=== PATIENT | female | born 1975 | race Caucasian/White ===

== ENCOUNTER 2018-10-24 17:14 | Emergency (ER) | payer BC ==
[2018-10-24 18:11] VITALS: BP 151/99
--- NOTE | 2018-10-24 23:21 | UC ---
Knee Pain HPI - History of Current Complaint Chief Complaint: UCLowerExtremity Stated Complaint: KNEE COMPLAINT Time Seen by Provider: 10/24/18 19:28 Pain Intensity: 8 Pain Scale Used: 0-10 Numeric - Allergies/Home Medications Allergies/Adverse Reactions: Allergies Allergy/AdvReac Type Severity Reaction Status Date / Time No Known Allergies Allergy Verified 10/24/18 18:11 Home Medications: Home Medications Enalapril Maleate [Vasotec] 1 tab PO DAILY 10/24/18 [History Confirmed 10/24/18] PMH/Surg Hx/FS Hx/Imm Hx Cardiovascular History: Hypertension - Surgical History Surgical History: None - Family History Known Family History: Positive: Non-Contributory - Social History Alcohol Use: None Substance Use Type: None Smoking Status (MU): Never Smoked Tobacco Review of Systems All Other Systems Reviewed And Are Negative: Yes Constitutional: Positive: Negative Skin: Positive: Negative Respiratory: Positive: Negative Cardiovascular: Positive: Negative Gastrointestinal: Positive: Negative Musculoskeletal: Positive: Arthralgia, Decreased ROM, Edema. Negative: Calf Tenderness Physical Exam Triage Information Reviewed: Yes Appearance: Well-Appearing, Well-Nourished, Pain Distress - MODERATE Vital Signs: Initial Vital Signs Temp 98.6 F 10/24/18 18:09 Pulse 68 10/24/18 18:09 Resp 18 10/24/18 18:09 BP 151/99 10/24/18 18:09 Pulse Ox 99 10/24/18 18:09 Vital Signs Reviewed: Yes Eyes: Positive: Conjunctiva Clear ENT: Positive: Hearing grossly normal Neck: Positive: Supple Respiratory: Positive: No respiratory distress, No accessory muscle use Cardiovascular: Positive: Pulses Normal Abdomen Description: Positive: Soft Musculoskeletal: Positive: ROM Limited @ - LEFT KNEE, Edema @ - SIGNIFICANT LEFT KNEE EDEMA, Other: - MILDLY TENDER DIFFUSELY BUT WORSE OVER ANTERIOR KNEE/ PATELLA. UNABLE TO PERFORM FULL KNEE EXAM DUE TO PT DISCOMFORT Neurological: Positive: Alert Psychological: Positive: Age Appropriate Behavior Skin: Negative: Rashes Diagnostics - Radiology LEFT KNEE XRAY Radiology Interpretation Completed By: ED Physician Summary of Radiographic Findings: NONDISPLACED PATELLAR FRACTURE Knee Pain Course/Dx - Course Course Of Treatment: XRAY CONCERNING FOR NONDISPLACED FRACTURE OF THE PATELLA. PATIENT WILL CONTINUE TO USE HER KNEE SLEEVE. KNEE IMMOBILIZER PLACED TODAY. SHE HAS A WALKER TO HELP WITH MOBILITY. RECOMMENDED SHE AVOID WEIGHTBEARING MUCH POSSIBLE. SHE WILL CALL ORTHOPEDICS FOR FOLLOW-UP APPOINTMENT FIRST THING Saturday. - Differential Dx/Diagnosis Provider Diagnosis: Nondisplaced fracture of patella Discharge - Sign-Out/Discharge Documenting (check all that apply): Patient Departure All imaging exams completed and their final reports reviewed: No - Discharge Plan Condition: Stable Disposition: HOME Patient Education Materials: Patellar Fracture (ED) Forms: *Work Release Referrals: Nicki Martines MD [Primary Care Provider] - If Needed Janiya Rangel MD [Medical Doctor] - 2 Days Additional Instructions: PRELIMINARY READING BY ME IS CONCERNING FOR A FRACTURE OF YOUR KNEECAP. CONTINUE TO USE YOUR KNEE SLEEVE FOR COMPRESSION IN ADDITION TO THE KNEE IMMOBILIZER WE HAVE PROVIDED FOR YOU TODAY. CONTINUE USING YOUR WALKER TO HELP WITH MOBILITY. TRY NOT TO WEIGHT-BEAR MUCH POSSIBLE. CALL ORTHOPEDICS FIRST THING Saturday FOR FOLLOW-UP APPOINTMENT. GO TO THE ER WITHOUT FAIL IF YOU DEVELOP INTOLERABLE PAIN, INCREASED SWELLING EXTENDING TO THE LOWER LEG, FEVER OR ANY OTHER CONCERNING SYMPTOMS. - Billing Disposition and Condition Condition: STABLE Disposition: Home
--- NOTE | 2018-10-25 15:22 | UC ---
- Progress Note Progress Note: OFFICIAL RADIOLOGY REPORT REVIEWED AND CONFIRMS Nondisplaced fracture lateral pole of the patella with suprapatellar effusion. NO CHANGE IN MGMT. FOLLOW-UP WITH ORTHO ADVISED. PT CALLED AND NOTIFIED BY ME. Course/Dx - Diagnoses Provider Diagnoses: Nondisplaced fracture of patella Discharge - Sign-Out/Discharge Documenting (check all that apply): Post-Discharge Follow Up All imaging exams completed and their final reports reviewed: Yes - Discharge Plan Condition: Stable Disposition: HOME Patient Education Materials: Patellar Fracture (ED) Forms: *Work Release Referrals: Nicki Martines MD [Primary Care Provider] - If Needed Janiya Rangel MD [Medical Doctor] - 2 Days Additional Instructions: PRELIMINARY READING BY ME IS CONCERNING FOR A FRACTURE OF YOUR KNEECAP. CONTINUE TO USE YOUR KNEE SLEEVE FOR COMPRESSION IN ADDITION TO THE KNEE IMMOBILIZER WE HAVE PROVIDED FOR YOU TODAY. CONTINUE USING YOUR WALKER TO HELP WITH MOBILITY. TRY NOT TO WEIGHT-BEAR MUCH POSSIBLE. CALL ORTHOPEDICS FIRST THING SATURDAY MORNING FOR FOLLOW-UP APPOINTMENT. GO TO THE ER WITHOUT FAIL IF YOU DEVELOP INTOLERABLE PAIN, INCREASED SWELLING EXTENDING TO THE LOWER LEG, FEVER OR ANY OTHER CONCERNING SYMPTOMS. - Billing Disposition and Condition Condition: STABLE Disposition: Home
== END 2018-10-24 21:10 | disposition home or self-care (01) ==
LOC: UCEAST 17:14
DX: S82.002A Unspecified fracture of left patella, initial encounter for closed fracture (principal); I10 Essential (primary) hypertension; Z79.899 Other long term (current) drug therapy; X58.XXXA Exposure to other specified factors, initial encounter; Y92.9 Unspecified place or not applicable
CPT/HCPCS: 99212; G0463

== ENCOUNTER 2020-12-10 08:37 | Inpatient (IN) ==
[2020-12-10 09:35] LABS: ABS Basophils 0.1 10^3/ul (0-0.2); ABS Eosinophils 0.3 10^3/ul (0-0.6); ABS Monocytes 2.2 10^3/ul (0-0.8); ABS Neutrophils 16.8 10^3/ul (1.5-7.7); Eosinophil % 1.3 %; Hematocrit 19 % (35-47); Hemoglobin 5.9 g/dL (12.0-16.0); Lymphocyte % 4.8 %; Mean Corpuscular HGB Conc 31 g/dL (31-36); Mean Corpuscular Hemoglobin 25 pg (27-31); Mean Corpuscular Volume 79 fL (80-97); Mean Platelet Volume 7.4 fL (7.4-10.4); Platelet Count 709 10^3/uL (150-450); Red Blood Count 2.41 10^6 /uL (3.70-4.87); Red Cell Distribution Width 17 % (10-15); White Blood Count 20.3 10^3/uL (3.5-10.8)
[2020-12-10 09:43] LABS: Albumin 2.3 g/dL (3.2-5.2); Albumin/Globulin Ratio 0.6 (1-3); BUN/Creatinine Ratio 19.6 (8-20); C Reactive Protein 267.18 mg/L (<8.01); Calcium 8.1 mg/dL (8.6-10.3); EGFR African American 66.8 (>60); EGFR Non-African American 55.2 (>60); Globulin 3.9 g/dL (2-4); Potassium 4.6 mmol/L (3.5-5.0); Total Bilirubin 0.6 mg/dL (0.2-1.0); Total Protein 6.2 g/dL (6.4-8.9)
[2020-12-10] MEDS ORDERED: Iodixanol (CONTRAST) 320 MG/ML 100 ML SDV IV ONE (09:54)
[2020-12-10 10:25] LABS: Urine Appearance Cloudy; Urine Bilirubin Negative (Negative); Urine Blood Negative (Negative); Urine Color Yellow; Urine Glucose Negative (Negative); Urine Ketones Negative (Negative); Urine Nitrite Negative (Negative); Urine Protein 1+(30 mg/dL) (Negative); Urine Specific Gravity 1.014 (1.010-1.030); Urine Urobilinogen Positive (Negative)
[2020-12-10 10:39] LABS: Urine Bacteria Absent (Absent); Urine Red Blood Cell 2+(6-10/hpf) (Absent); Urine Squamous Epithelial Cell Present (Absent); Urine White Blood Cell Trace(0-5/hpf) (Absent)
[2020-12-10] MEDS ORDERED: Ondansetron 4 mg VIAL 2 MG/ML 2 ml VIAL IV PRN (13:08)
[2020-12-10 17:45] LABS: Body Fluid Source Peritonial Fluid
[2020-12-10 18:19] LABS: Hematocrit 24 % (35-47); Hemoglobin 7.5 g/dL (12.0-16.0)
[2020-12-10 19:07] LABS: Body Fluid Mono 27 %
[2020-12-11 08:17] LABS: ABS Basophils 0.1 10^3/ul (0-0.2); ABS Eosinophils 0.3 10^3/ul (0-0.6); ABS Monocytes 1.9 10^3/ul (0-0.8); ABS Neutrophils 14.6 10^3/ul (1.5-7.7); Eosinophil % 1.4 %; Hematocrit 26 % (35-47); Hemoglobin 7.9 g/dL (12.0-16.0); Lymphocyte % 5.6 %; Mean Corpuscular HGB Conc 31 g/dL (31-36); Mean Corpuscular Hemoglobin 25 pg (27-31); Mean Corpuscular Volume 82 fL (80-97); Mean Platelet Volume 7.3 fL (7.4-10.4); Platelet Count 591 10^3/uL (150-450); Red Blood Count 3.15 10^6 /uL (3.70-4.87); Red Cell Distribution Width 17 % (10-15); White Blood Count 17.9 10^3/uL (3.5-10.8)
[2020-12-11 08:30] LABS: Albumin 1.9 g/dL (3.2-5.2); Albumin/Globulin Ratio 0.6 (1-3); BUN/Creatinine Ratio 20.7 (8-20); Calcium 7.7 mg/dL (8.6-10.3); EGFR African American 84.8 (>60); EGFR Non-African American 70.1 (>60); Globulin 3.3 g/dL (2-4); Indirect Bilirubin 0.5 mg/dL (0.3-1.0); Potassium 4.6 mmol/L (3.5-5.0); Total Bilirubin 0.8 mg/dL (0.2-1.0); Total Protein 5.2 g/dL (6.4-8.9)
[2020-12-11 17:19] LABS: Total Iron Binding Capacity 115 mcg/dL (250-450); Transferrin 82 mg/dL (203-362)
[2020-12-11 17:29] LABS: % Iron Saturation 17 % (15-55); Iron < 20 ug/dL (50-212); Unsaturated Iron Binding < 100 ug/dL
[2020-12-11 17:32] LABS: Carcinoembryonic Antigen 1.6 ng/mL (0.1-5.0)
[2020-12-11 18:32] LABS: Ferritin 2020.9 ng/mL (11-307)
[2020-12-11] MEDS ORDERED: Enoxaparin 40 MG/0.4 ML SYR SUBCUT SCH (20:00)
[2020-12-12 05:01] LABS: Hematocrit 25 % (35-47); Mean Corpuscular HGB Conc 31 g/dL (31-36); Mean Corpuscular Hemoglobin 25 pg (27-31); Mean Corpuscular Volume 80 fL (80-97); Mean Platelet Volume 7.4 fL (7.4-10.4); Platelet Count 617 10^3/uL (150-450); Red Blood Count 3.17 10^6 /uL (3.70-4.87); Red Cell Distribution Width 18 % (10-15); White Blood Count 17.9 10^3/uL (3.5-10.8)
[2020-12-12 05:10] LABS: ABS Basophils 0.1 10^3/ul (0-0.2); ABS Eosinophils 0.3 10^3/ul (0-0.6); ABS Lymphocytes 1.1 10^3/ul (1.0-4.8); ABS Monocytes 1.8 10^3/ul (0-0.8); ABS Neutrophils 14.6 10^3/ul (1.5-7.7); Eosinophil % 1.7 %
[2020-12-12 07:36] VITALS: BP 97/50
[2020-12-13 13:41] LABS: Albumin, BF 1.7 g/dL; Fluid Type, Albumin PERITONEAL
[2020-12-13 13:43] LABS: Lactate Dehydrogenase, BF 314 U/L
[2020-12-13 13:57] LABS: Fluid Type, Protein, Total PERITONEAL
[2020-12-13 14:11] LABS: Fluid Type, Glucose PERITONEAL; Glucose, BF 104 mg/dL
== END 2020-12-12 11:15 | disposition home or self-care (01) | DRG 264 ==
LOC: ED 08:37 → SSU 14:14
PROVIDERS: ADMIT Internal Medicine; ATTEND Internal Medicine

== ENCOUNTER 2021-01-05 10:41 | Inpatient (IN) ==
[2021-01-05] MEDS ORDERED: NS 0.9% 1000 ml BAG 1,000 ML IV ONE (11:12)
[2021-01-05 12:03] LABS: ABS Basophils 0.1 10^3/ul (0-0.2); ABS Lymphocytes 1.4 10^3/ul (1.0-4.8); ABS Neutrophils 18.3 10^3/ul (1.5-7.7); Eosinophil % 0.1 %; Hematocrit 19 % (35-47); Hemoglobin 5.8 g/dL (12.0-16.0); Lymphocyte % 6.4 %; Mean Corpuscular HGB Conc 30 g/dL (31-36); Mean Corpuscular Hemoglobin 24 pg (27-31); Mean Corpuscular Volume 79 fL (80-97); Mean Platelet Volume 8.3 fL (7.4-10.4); Platelet Count 410 10^3/uL (150-450); Red Blood Count 2.43 10^6 /uL (3.70-4.87); Red Cell Distribution Width 19 % (10-15); White Blood Count 21.9 10^3/uL (3.5-10.8)
[2021-01-05 12:04] LABS: Activated Partial Thrombo Time 31.1 seconds (26.0-38.0); INR 1.45 (0.82-1.09)
[2021-01-05 12:11] LABS: Albumin 2.1 g/dL (3.2-5.2); Albumin/Globulin Ratio 0.5 (1-3); BUN/Creatinine Ratio 24.3 (8-20); C Reactive Protein 262.86 mg/L (<8.01); Calcium 8.1 mg/dL (8.6-10.3); EGFR African American 69.5 (>60); EGFR Non-African American 57.4 (>60); Globulin 3.9 g/dL (2-4); Potassium 4.5 mmol/L (3.5-5.0); Total Bilirubin 0.9 mg/dL (0.2-1.0)
[2021-01-05 13:39] LABS: Erythrocyte Sed Rate > 120 mm/Hr (0-19)
[2021-01-05] MEDS: Pantoprazole VIAL 40 MG VIAL IV SCH (17:39)
[2021-01-05] MEDS ORDERED: Iodixanol (CONTRAST) 320 MG/ML 100 ML SDV IV ONE (21:22)
[2021-01-05 22:55] LABS: Hematocrit 25 % (35-47); Hemoglobin 7.9 g/dL (12.0-16.0)
[2021-01-06 06:17] LABS: ABS Eosinophils 0.1 10^3/ul (0-0.6); ABS Lymphocytes 1.1 10^3/ul (1.0-4.8); ABS Monocytes 1.4 10^3/ul (0-0.8); ABS Neutrophils 19.2 10^3/ul (1.5-7.7); Eosinophil % 0.6 %; Hematocrit 25 % (35-47); Hemoglobin 7.9 g/dL (12.0-16.0); Mean Corpuscular HGB Conc 31 g/dL (31-36); Mean Corpuscular Hemoglobin 24 pg (27-31); Mean Corpuscular Volume 78 fL (80-97); Mean Platelet Volume 8.4 fL (7.4-10.4); Platelet Count 388 10^3/uL (150-450); Red Blood Count 3.25 10^6 /uL (3.70-4.87); Red Cell Distribution Width 20 % (10-15)
[2021-01-06 06:34] LABS: Albumin 1.9 g/dL (3.2-5.2); Albumin/Globulin Ratio 0.5 (1-3); BUN/Creatinine Ratio 22.8 (8-20); Calcium 7.9 mg/dL (8.6-10.3); EGFR African American 61.8 (>60); EGFR Non-African American 51.1 (>60); Globulin 3.9 g/dL (2-4); Potassium 4.5 mmol/L (3.5-5.0); Total Bilirubin 1.1 mg/dL (0.2-1.0); Total Protein 5.8 g/dL (6.4-8.9)
[2021-01-06] MEDS: Pantoprazole VIAL 40 MG VIAL IV SCH (09:18)
[2021-01-06] MEDS ORDERED: TPN 24 HR with Sodium Chloride CONC. 4 MEQ/ML 100 MEQ, Potassium Chloride TPN 50 MEQ, P... CENT\\PICC SCH (17:00)
[2021-01-06] MEDS: TPN CENTRAL STANDARD BASE A CENTR SCH (17:33)
[2021-01-07 05:28] LABS: ABS Eosinophils 0.3 10^3/ul (0-0.6); ABS Lymphocytes 1.1 10^3/ul (1.0-4.8); ABS Monocytes 1.5 10^3/ul (0-0.8); ABS Neutrophils 16.8 10^3/ul (1.5-7.7); Eosinophil % 1.5 %; Hematocrit 22 % (35-47); Hemoglobin 6.8 g/dL (12.0-16.0); Lymphocyte % 5.6 %; Mean Corpuscular HGB Conc 31 g/dL (31-36); Mean Corpuscular Hemoglobin 24 pg (27-31); Mean Corpuscular Volume 80 fL (80-97); Mean Platelet Volume 8.2 fL (7.4-10.4); Platelet Count 284 10^3/uL (150-450); Red Blood Count 2.79 10^6 /uL (3.70-4.87); Red Cell Distribution Width 20 % (10-15); White Blood Count 19.8 10^3/uL (3.5-10.8)
[2021-01-07 05:52] LABS: Prealbumin < 3 mg/dL (18-38)
[2021-01-07 05:54] LABS: ALT 7 U/L (7-52); AST 7 U/L (13-39); Albumin 1.7 g/dL (3.2-5.2); Albumin/Globulin Ratio 0.5 (1-3); Alkaline Phosphatase 74 U/L (34-104); Anion Gap 5 mmol/L (2-11); BUN/Creatinine Ratio 30.8 (8-20); Blood Urea Nitrogen 32 mg/dL (6-24); CO2 Carbon Dioxide 24 mmol/L (22-32); Calcium 8.1 mg/dL (8.6-10.3); Chloride 106 mmol/L (101-111); Cholesterol 66 mg/dL; EGFR African American 68.7 (>60); EGFR Non-African American 56.8 (>60); Globulin 3.3 g/dL (2-4); Glucose 155 mg/dL (70-100); Potassium 4.6 mmol/L (3.5-5.0); Sodium 135 mmol/L (135-145); Triglycerides 80 mg/dL
[2021-01-07] MEDS: Pantoprazole VIAL 40 MG VIAL IV SCH (07:40)
[2021-01-07] MEDS: TPN CENTRAL STANDARD BASE A CENTR SCH (17:02)
[2021-01-07] MEDS: Morphine 2 MG/ML SYRINGE IV PRN ×2 (18:14→21:37)
[2021-01-08 05:38] LABS: Hematocrit 25 % (35-47); Mean Corpuscular HGB Conc 32 g/dL (31-36); Mean Corpuscular Hemoglobin 26 pg (27-31); Mean Corpuscular Volume 82 fL (80-97); Mean Platelet Volume 8.6 fL (7.4-10.4); Platelet Count 216 10^3/uL (150-450); Red Cell Distribution Width 20 % (10-15); White Blood Count 21.5 10^3/uL (3.5-10.8)
[2021-01-08 05:40] LABS: ABS Basophils 0.1 10^3/ul (0-0.2); ABS Eosinophils 0.6 10^3/ul (0-0.6); ABS Lymphocytes 1.4 10^3/ul (1.0-4.8); ABS Monocytes 1.9 10^3/ul (0-0.8); ABS Neutrophils 17.5 10^3/ul (1.5-7.7); Eosinophil % 2.7 %; Lymphocyte % 6.5 %
[2021-01-08 05:52] LABS: ALT 6 U/L (7-52); AST 11 U/L (13-39); Albumin 1.7 g/dL (3.2-5.2); Albumin/Globulin Ratio 0.5 (1-3); Alkaline Phosphatase 86 U/L (34-104); Anion Gap 4 mmol/L (2-11); Blood Urea Nitrogen 41 mg/dL (6-24); CO2 Carbon Dioxide 23 mmol/L (22-32); Calcium 8.6 mg/dL (8.6-10.3); Chloride 108 mmol/L (101-111); Cholesterol 55 mg/dL; EGFR African American 65.8 (>60); EGFR Non-African American 54.4 (>60); Globulin 3.5 g/dL (2-4); Glucose 143 mg/dL (70-100); Phosphorus 3.1 mg/dL (2.5-5.0); Sodium 135 mmol/L (135-145); Total Protein 5.2 g/dL (6.4-8.9); Triglycerides 69 mg/dL
[2021-01-08 06:12] LABS: Prealbumin < 3 mg/dL (18-38)
[2021-01-08] MEDS: Pantoprazole VIAL 40 MG VIAL IV SCH (08:35)
[2021-01-08] MEDS: Morphine 2 MG/ML SYRINGE IV PRN ×2 (16:53→20:39)
[2021-01-08] MEDS ORDERED: TPN CENTRAL STANDARD BASE A CENTR SCH (17:00)
[2021-01-09 05:37] LABS: Hematocrit 26 % (35-47); Hemoglobin 7.9 g/dL (12.0-16.0); Mean Corpuscular HGB Conc 30 g/dL (31-36); Mean Corpuscular Hemoglobin 25 pg (27-31); Mean Corpuscular Volume 83 fL (80-97); Mean Platelet Volume 9.2 fL (7.4-10.4); Platelet Count 201 10^3/uL (150-450); Red Blood Count 3.13 10^6 /uL (3.70-4.87); Red Cell Distribution Width 20 % (10-15)
[2021-01-09 05:41] LABS: ABS Basophils 0.1 10^3/ul (0-0.2); ABS Eosinophils 0.5 10^3/ul (0-0.6); ABS Lymphocytes 1.6 10^3/ul (1.0-4.8); ABS Monocytes 2.4 10^3/ul (0-0.8); ABS Neutrophils 18.5 10^3/ul (1.5-7.7); Eosinophil % 2.2 %; Lymphocyte % 7.1 %
[2021-01-09 05:48] LABS: ALT 8 U/L (7-52); AST 13 U/L (13-39); Albumin 1.7 g/dL (3.2-5.2); Albumin/Globulin Ratio 0.5 (1-3); Alkaline Phosphatase 92 U/L (34-104); BUN/Creatinine Ratio 36.9 (8-20); Blood Urea Nitrogen 55 mg/dL (6-24); CO2 Carbon Dioxide 21 mmol/L (22-32); Calcium 9.2 mg/dL (8.6-10.3); Chloride 107 mmol/L (101-111); Cholesterol 51 mg/dL; EGFR African American 45.4 (>60); EGFR Non-African American 37.5 (>60); Globulin 3.6 g/dL (2-4); Glucose 111 mg/dL (70-100); Magnesium 2.1 mg/dL (1.9-2.7); Phosphorus 3.3 mg/dL (2.5-5.0); Sodium 133 mmol/L (135-145); Total Protein 5.3 g/dL (6.4-8.9); Triglycerides 68 mg/dL
[2021-01-09 05:56] LABS: Anion Gap 5 mmol/L (2-11); Potassium 6.3 mmol/L (3.5-5.0)
[2021-01-09 06:14] LABS: Prealbumin < 3 mg/dL (18-38)
[2021-01-09] MEDS ORDERED: NS 0.9% 1,000 ML IV ONE (06:30)
[2021-01-09] MEDS: Pantoprazole VIAL 40 MG VIAL IV SCH (07:34)
[2021-01-09 08:24] LABS: BUN/Creatinine Ratio 37.2 (8-20); Calcium 8.8 mg/dL (8.6-10.3); EGFR African American 46.8 (>60); EGFR Non-African American 38.7 (>60)
[2021-01-09 08:27] LABS: Potassium 6.1 mmol/L (3.5-5.0)
[2021-01-09] MEDS ORDERED: Dextrose 50% Syringe 50 ml 25 GM/50 ML SYRINGE IV PUSH ONE ×2 (08:28→20:18)
[2021-01-09] MEDS ORDERED: NS 0.9% 1000 ml BAG 1,000 ML IV SCH ×3 (08:30→15:18)
[2021-01-09 08:50] LABS: Uric Acid 3.7 mg/dL (2.3-6.6)
[2021-01-09 14:16] LABS: BUN/Creatinine Ratio 37.7 (8-20); Calcium 8.8 mg/dL (8.6-10.3); EGFR African American 43.7 (>60); EGFR Non-African American 36.1 (>60); Magnesium 1.9 mg/dL (1.9-2.7); Phosphorus 3.7 mg/dL (2.5-5.0)
[2021-01-09 14:21] LABS: Potassium 6.3 mmol/L (3.5-5.0)
[2021-01-09] MEDS ORDERED: Sodium Polystyrene ORAL.SUSP 15 GM/60 ML BTL PO ONE ×2 (15:30→20:18)
[2021-01-09] MEDS: Morphine 2 MG/ML SYRINGE IV PRN (15:34)
[2021-01-09 20:06] LABS: BUN/Creatinine Ratio 35.9 (8-20); Calcium 8.9 mg/dL (8.6-10.3); EGFR Non-African American 32.2 (>60)
[2021-01-09 20:08] LABS: Potassium 6.4 mmol/L (3.5-5.0)
[2021-01-09] MEDS ORDERED: Furosemide 20 mg/2 ml IV VIAL IV ONE (20:18)
[2021-01-09 22:35] LABS: BUN/Creatinine Ratio 34.8 (8-20); EGFR African American 36.3 (>60)
[2021-01-09 22:36] LABS: Potassium 6.1 mmol/L (3.5-5.0)
[2021-01-10] MEDS: Morphine 2 MG/ML SYRINGE IV PRN ×2 (01:47→08:19)
[2021-01-10] MEDS ORDERED: Sodium Polystyrene ORAL.SUSP 15 GM/60 ML BTL PO ONE (03:00)
[2021-01-10 06:20] LABS: Hematocrit 26 % (35-47); Hemoglobin 8.1 g/dL (12.0-16.0); Mean Corpuscular HGB Conc 31 g/dL (31-36); Mean Corpuscular Hemoglobin 26 pg (27-31); Mean Corpuscular Volume 83 fL (80-97); Mean Platelet Volume 9.2 fL (7.4-10.4); Platelet Count 236 10^3/uL (150-450); Red Blood Count 3.15 10^6 /uL (3.70-4.87); Red Cell Distribution Width 20 % (10-15); White Blood Count 22.6 10^3/uL (3.5-10.8)
[2021-01-10 06:36] LABS: ABS Basophils 0.1 10^3/ul (0-0.2); ABS Monocytes 2.4 10^3/ul (0-0.8); BUN/Creatinine Ratio 32.8 (8-20); EGFR African American 31.6 (>60); EGFR Non-African American 26.1 (>60); Eosinophil % 0.2 %; Lymphocyte % 4.4 %; Nucleated Red Blood Cells % 0.1
[2021-01-10 06:38] LABS: Potassium 5.8 mmol/L (3.5-5.0)
[2021-01-10] MEDS ORDERED: Midazolam 2 mg/2 ml VIAL 1 mg/ml 2 ml VIAL (2 mg) ONE (10:20)
[2021-01-10] MEDS ORDERED: fentaNYL 100 mcg/2 ml 50 MCG/ML VIAL ONE (10:20)
[2021-01-10 10:32] LABS: Activated Partial Thrombo Time 34.6 seconds (26.0-38.0); INR 1.61 (0.82-1.09)
[2021-01-10] MEDS: Pantoprazole VIAL 40 MG VIAL IV SCH (12:41)
[2021-01-10] MEDS: NS 0.9% 1,000 ML IV ONE ×2 (15:47→19:58)
[2021-01-10 17:37] LABS: BUN/Creatinine Ratio 36.9 (8-20); Calcium 8.3 mg/dL (8.6-10.3); EGFR African American 34.9 (>60); EGFR Non-African American 28.9 (>60)
[2021-01-10 17:38] LABS: Potassium 5.6 mmol/L (3.5-5.0)
[2021-01-11] MEDS: NS 0.9% 1,000 ML IV SCH ×2 (05:31→17:07)
[2021-01-11 06:04] LABS: ABS Basophils 0.1 10^3/ul (0-0.2); ABS Eosinophils 0.2 10^3/ul (0-0.6); ABS Lymphocytes 0.9 10^3/ul (1.0-4.8); ABS Monocytes 1.4 10^3/ul (0-0.8); ABS Neutrophils 14.8 10^3/ul (1.5-7.7); Eosinophil % 1.2 %; Hematocrit 23 % (35-47); Lymphocyte % 5.3 %; Mean Corpuscular HGB Conc 31 g/dL (31-36); Mean Corpuscular Hemoglobin 25 pg (27-31); Mean Corpuscular Volume 83 fL (80-97); Mean Platelet Volume 9.1 fL (7.4-10.4); Platelet Count 232 10^3/uL (150-450); Red Blood Count 2.77 10^6 /uL (3.70-4.87); Red Cell Distribution Width 20 % (10-15); White Blood Count 17.4 10^3/uL (3.5-10.8)
[2021-01-11 06:27] LABS: Albumin 1.5 g/dL (3.2-5.2); Calcium 7.4 mg/dL (8.6-10.3); Potassium 4.8 mmol/L (3.5-5.0); Total Bilirubin 1.5 mg/dL (0.2-1.0)
[2021-01-11 06:33] LABS: Albumin/Globulin Ratio 0.5 (1-3); BUN/Creatinine Ratio 36.9 (8-20); EGFR African American 37.5 (>60); Globulin 3.2 g/dL (2-4); Total Protein 4.7 g/dL (6.4-8.9)
[2021-01-11] MEDS: Pantoprazole VIAL 40 MG VIAL IV SCH (09:24)
[2021-01-11] MEDS: Morphine 2 MG/ML SYRINGE IV PRN ×2 (11:24→20:58)
[2021-01-11 12:03] LABS: ABS Basophils 0.1 10^3/ul (0-0.2); ABS Eosinophils 0.2 10^3/ul (0-0.6); ABS Lymphocytes 0.7 10^3/ul (1.0-4.8); ABS Monocytes 1.4 10^3/ul (0-0.8); ABS Neutrophils 15.4 10^3/ul (1.5-7.7); Hematocrit 24 % (35-47); Hemoglobin 7.3 g/dL (12.0-16.0); Lymphocyte % 4.2 %; Mean Corpuscular HGB Conc 31 g/dL (31-36); Mean Corpuscular Hemoglobin 25 pg (27-31); Mean Corpuscular Volume 82 fL (80-97); Mean Platelet Volume 8.9 fL (7.4-10.4); Platelet Count 232 10^3/uL (150-450); Red Blood Count 2.89 10^6 /uL (3.70-4.87); Red Cell Distribution Width 20 % (10-15); White Blood Count 17.8 10^3/uL (3.5-10.8)
[2021-01-12] MEDS: Pantoprazole VIAL 40 MG VIAL IV SCH (08:03)
[2021-01-12 10:25] LABS: ABS Basophils 0.1 10^3/ul (0-0.2); ABS Eosinophils 0.2 10^3/ul (0-0.6); ABS Lymphocytes 0.8 10^3/ul (1.0-4.8); ABS Monocytes 1.3 10^3/ul (0-0.8); Hematocrit 22 % (35-47); Hemoglobin 6.7 g/dL (12.0-16.0); Lymphocyte % 4.3 %; Mean Corpuscular HGB Conc 30 g/dL (31-36); Mean Corpuscular Hemoglobin 25 pg (27-31); Mean Corpuscular Volume 83 fL (80-97); Mean Platelet Volume 8.8 fL (7.4-10.4); Nucleated Red Blood Cells % 0.1; Platelet Count 216 10^3/uL (150-450); Red Blood Count 2.66 10^6 /uL (3.70-4.87); Red Cell Distribution Width 20 % (10-15); White Blood Count 17.3 10^3/uL (3.5-10.8)
[2021-01-12 10:41] LABS: Albumin 1.5 g/dL (3.2-5.2); Albumin/Globulin Ratio 0.5 (1-3); BUN/Creatinine Ratio 38.9 (8-20); Calcium 7.7 mg/dL (8.6-10.3); EGFR African American 36.5 (>60); EGFR Non-African American 30.2 (>60); Globulin 3.1 g/dL (2-4); Potassium 4.3 mmol/L (3.5-5.0); Total Bilirubin 1.3 mg/dL (0.2-1.0); Total Protein 4.6 g/dL (6.4-8.9)
[2021-01-12] MEDS ORDERED: methylPREDNISolone 125 mg 2 ML VIAL IV PRN (12:24)
[2021-01-12] MEDS ORDERED: diPHENhydraMINE IV 50 MG/ML 1 ml VIAL (BENADRYL) SLOW PUSH PRN (12:27)
[2021-01-12] MEDS ORDERED: Famotidine IV 10 MG/ML 2 ml VIAL (20 mg) IV SLOW PU PRN (12:27)
[2021-01-12] MEDS ORDERED: Dexamethasone IV 4 MG/ML 5 ML VIAL (20 MG) IVPB ONE (12:30)
[2021-01-12] MEDS ORDERED: diPHENhydraMINE IV 50 MG/ML 1 ml VIAL (BENADRYL) SLOW PUSH ONE (12:30)
[2021-01-12] MEDS ORDERED: Famotidine IV 10 MG/ML 2 ml VIAL (20 mg) IV SLOW PU ONE (12:30)
[2021-01-12] MEDS ORDERED: APREPITANT 130 MG in Premix IV 0 ML IVPB ONE (12:45)
[2021-01-12] MEDS ORDERED: Palonosetron 0.25 MG in Premix IV 0 ML IVPB ONE (12:45)
[2021-01-12] MEDS ORDERED: PACLITAXEL IVPB ONE (13:30)
[2021-01-12] MEDS ORDERED: NS 0.9% IVPB ONE ×2 (13:30→16:30)
[2021-01-12] MEDS ORDERED: CARBOPLATIN IVPB ONE (16:30)
[2021-01-12] MEDS ORDERED: TPN 24 HR with Dextrose 50% Water 500 ML, Amino Acid Infusion 10% 850 ML, Sterile Water... CENTR SCH (17:00)
[2021-01-12] MEDS: Morphine 2 MG/ML SYRINGE IV PRN (17:00)
[2021-01-13] MEDS: Morphine 2 MG/ML SYRINGE IV PRN ×4 (04:33→22:13)
[2021-01-13 05:24] LABS: Albumin 1.5 g/dL (3.2-5.2); Albumin/Globulin Ratio 0.5 (1-3); BUN/Creatinine Ratio 45.3 (8-20); Calcium 7.3 mg/dL (8.6-10.3); EGFR African American 42.1 (>60); EGFR Non-African American 34.8 (>60); Globulin 3.1 g/dL (2-4); Phosphorus 6.9 mg/dL (2.5-5.0); Potassium 4.7 mmol/L (3.5-5.0); Total Protein 4.6 g/dL (6.4-8.9)
[2021-01-13] MEDS ORDERED: Dextrose 50% Syringe 50 ml 25 GM/50 ML SYRINGE IV PUSH PRN (05:55)
[2021-01-13 06:13] LABS: Hematocrit 24 % (35-47); Hemoglobin 7.1 g/dL (12.0-16.0); Mean Corpuscular HGB Conc 29 g/dL (31-36); Mean Corpuscular Hemoglobin 25 pg (27-31); Mean Corpuscular Volume 86 fL (80-97); Platelet Count 244 10^3/uL (150-450); Red Blood Count 2.84 10^6 /uL (3.70-4.87); Red Cell Distribution Width 20 % (10-15); White Blood Count 21.1 10^3/uL (3.5-10.8)
[2021-01-13] MEDS: Pantoprazole VIAL 40 MG VIAL IV SCH (07:30)
[2021-01-13 08:53] LABS: ABS Basophils 0.1 10^3/ul (0-0.2); ABS Lymphocytes 0.6 10^3/ul (1.0-4.8); ABS Monocytes 0.5 10^3/ul (0-0.8); ABS Neutrophils 19.9 10^3/ul (1.5-7.7); Lymphocyte % 2.7 %
[2021-01-13 08:54] LABS: Polychromasia 1+
[2021-01-13] MEDS ORDERED: TPN CENTRAL STANDARD BASE A CENTR SCH (17:00)
[2021-01-14] MEDS: Morphine 2 MG/ML SYRINGE IV PRN ×5 (05:21→23:17)
[2021-01-14] MEDS: Pantoprazole VIAL 40 MG VIAL IV SCH (08:11)
[2021-01-14 11:18] LABS: Calcium 7.3 mg/dL (8.6-10.3); Magnesium 2.3 mg/dL (1.9-2.7)
[2021-01-14 11:23] LABS: BUN/Creatinine Ratio 65.1 (8-20); EGFR African American 53.6 (>60); EGFR Non-African American 44.3 (>60); Phosphorus 6.6 mg/dL (2.5-5.0); Uric Acid 7.3 mg/dL (2.3-6.6)
[2021-01-14 11:28] LABS: Potassium 5.4 mmol/L (3.5-5.0)
[2021-01-14] MEDS ORDERED: TPN 24 HR with Dextrose 50% Water 500 ML, Amino Acid Infusion 10% 850 ML, Sterile Water... CENTR SCH (17:00)
[2021-01-15 06:08] LABS: Albumin 1.5 g/dL (3.2-5.2); Albumin/Globulin Ratio 0.5 (1-3); Calcium 7.7 mg/dL (8.6-10.3); EGFR African American 55.6 (>60); EGFR Non-African American 45.9 (>60); Globulin 2.8 g/dL (2-4); Total Bilirubin 1.2 mg/dL (0.2-1.0); Total Protein 4.3 g/dL (6.4-8.9)
[2021-01-15 06:09] LABS: Potassium 5.2 mmol/L (3.5-5.0)
[2021-01-15] MEDS: Pantoprazole VIAL 40 MG VIAL IV SCH (08:22)
[2021-01-15] MEDS ORDERED: NS 0.9% 500 ml BAG 500 ML IV ONE (17:00)
[2021-01-15] MEDS ORDERED: TPN 24 HR with Dextrose 50% Water 500 ML, Amino Acid Infusion 10% 850 ML, Sterile Water... CENTR SCH (17:00)
[2021-01-15] MEDS ORDERED: Ondansetron 4 mg VIAL 2 MG/ML 2 ml VIAL ONE (17:46)
[2021-01-15] MEDS: Morphine 2 MG/ML SYRINGE IV PRN (18:58)
[2021-01-15] MEDS ORDERED: Ondansetron 4 mg VIAL 2 MG/ML 2 ml VIAL IV PRN (19:15)
[2021-01-16] MEDS: Morphine 2 MG/ML SYRINGE IV PRN ×5 (00:28→17:34)
[2021-01-16] MEDS: Pantoprazole VIAL 40 MG VIAL IV SCH (08:11)
[2021-01-16 10:38] LABS: BUN/Creatinine Ratio 87.7 (8-20); Calcium 7.8 mg/dL (8.6-10.3); EGFR African American 57.2 (>60); EGFR Non-African American 47.2 (>60); Magnesium 2.5 mg/dL (1.9-2.7); Phosphorus 7.3 mg/dL (2.5-5.0); Potassium 5.3 mmol/L (3.5-5.0)
[2021-01-16] MEDS ORDERED: NS 0.9% 1000 ml BAG 1,000 ML IV ONE (10:45)
[2021-01-16] MEDS ORDERED: D5W 1/4 NS 1000 ml BAG 1,000 ML IV SCH (11:00)
[2021-01-16] MEDS: Sodium Bicarbonate 8.4% SYR 50 ml SYRINGE IV ONE ×2 (11:17→11:21)
[2021-01-16 11:36] LABS: ABS Lymphocytes 0.4 10^3/ul (1.0-4.8); ABS Neutrophils 1.6 10^3/ul (1.5-7.7); Eosinophil % 0.6 %; Hematocrit 25 % (35-47); Hemoglobin 7.5 g/dL (12.0-16.0); Lymphocyte % 19.7 %; Mean Corpuscular HGB Conc 31 g/dL (31-36); Mean Corpuscular Hemoglobin 27 pg (27-31); Mean Corpuscular Volume 90 fL (80-97); Mean Platelet Volume 10.8 fL (7.4-10.4); Nucleated Red Blood Cells % 0.5; Platelet Count 17 10^3/uL (150-450); Red Blood Count 2.72 10^6 /uL (3.70-4.87); Red Cell Distribution Width 21 % (10-15); White Blood Count 2.1 10^3/uL (3.5-10.8)
[2021-01-16] MEDS ORDERED: Sodium Bicarb 8.4% Vial 50 ML 150 MEQ in D5W 1000 ml BAG 850 ML IV SCH (12:00)
[2021-01-16 12:26] LABS: Burr Cells 1+
[2021-01-16 16:11] LABS: Calcium 6.9 mg/dL (8.6-10.3); EGFR African American 61.2 (>60); EGFR Non-African American 50.6 (>60); Potassium 4.7 mmol/L (3.5-5.0)
[2021-01-16] MEDS ORDERED: TPN CENTRAL STANDARD BASE A CENTR SCH (17:00)
[2021-01-17] MEDS: Morphine 2 MG/ML SYRINGE IV PRN ×2 (02:17→06:01)
[2021-01-17 05:44] LABS: ABS Lymphocytes 0.3 10^3/ul (1.0-4.8); ABS Neutrophils 0.8 10^3/ul (1.5-7.7); Eosinophil % 1.1 %; Hematocrit 21 % (35-47); Hemoglobin 6.6 g/dL (12.0-16.0); Mean Corpuscular HGB Conc 31 g/dL (31-36); Mean Corpuscular Hemoglobin 26 pg (27-31); Mean Corpuscular Volume 84 fL (80-97); Mean Platelet Volume 9.5 fL (7.4-10.4); Nucleated Red Blood Cells % 0.1; Platelet Count 8 10^3/uL (150-450); Red Blood Count 2.52 10^6 /uL (3.70-4.87); Red Cell Distribution Width 20 % (10-15); White Blood Count 1.2 10^3/uL (3.5-10.8)
[2021-01-17 05:54] LABS: ALT 25 U/L (7-52); AST 25 U/L (13-39); Alkaline Phosphatase 95 U/L (34-104); Blood Urea Nitrogen 121 mg/dL (6-24); Calcium 7.3 mg/dL (8.6-10.3); Cholesterol 61 mg/dL; EGFR African American 55.1 (>60); EGFR Non-African American 45.5 (>60); Glucose 150 mg/dL (70-100); Magnesium 2.5 mg/dL (1.9-2.7); Phosphorus 7.5 mg/dL (2.5-5.0); Total Protein 3.5 g/dL (6.4-8.9); Triglycerides 95 mg/dL
[2021-01-17 05:58] LABS: Chloride 125 mmol/L (101-111); Potassium 5.2 mmol/L (3.5-5.0); Sodium 149 mmol/L (135-145)
[2021-01-17 06:01] LABS: Anion Gap 10 mmol/L (2-11); CO2 Carbon Dioxide 14 mmol/L (22-32)
[2021-01-17 06:02] LABS: Prealbumin < 3 mg/dL (18-38)
[2021-01-17 06:36] LABS: Albumin < 1.5 g/dL (3.2-5.2); Albumin/Globulin Ratio 0.8 (1-3); Burr Cells 2+
[2021-01-17] MEDS ORDERED: Sodium Bicarbonate 8.4% SYR 50 ml SYRINGE IV ONE (08:30)
[2021-01-17] MEDS: Pantoprazole VIAL 40 MG VIAL IV SCH (09:26)
[2021-01-17 13:03] VITALS: BP 84/47
== END 2021-01-17 16:43 | disposition expired | DRG 950 ==
LOC: ED 10:41 → MED 13:06
PROVIDERS: ADMIT Internal Medicine; ATTEND Internal Medicine Hematology & Oncology